=== PATIENT | female | born 1990 | race Two or more races ===

== ENCOUNTER 2025-01-14 01:42 | Emergency (ER) | payer MEDICAID, SELFPAY ==
[2025-01-14 01:44] VITALS: BP 142/89; PULSE 113; RESP 19; TEMP 37.5; O2SAT 92
[2025-01-14 01:45] VITALS: BMI 28.3
[2025-01-14 01:50] VITALS: PULSE 115; RESP 18; O2SAT 98
--- NOTE | 2025-01-14 02:10 | PD.EDSUICD ---
ED Psych RME/HPI General Chief Complaint: Suicidal Stated Complaint: 5150 Time Seen by Provider: 01/14/25 02:03 Arrival date/time: 01/14/25 01:42 RME / HPI RME / HPI Narrative: DR. 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 Patient admits to alcohol consumption tonight. Reports being told by people around her that she doesn't do anything and does not feel acknowledged for all she does for her household. Patient states she felt overwhelmed with life and decided to take her 's knife and cut her right forearm out of anger. Patient is on Methotrexate for management of Psoriasis. No other concerns or complains expressed at this time. Related Data Home Medications ?Medication ?Instructions ?Recorded ?Confirmed lisinopril 20 1 tab PO QAM High Blood Pressure 08/27/22 08/28/22 mg-hydrochlorothiazide 12.5 mg tablet Previous Rx's ?Medication ?Instructions ?Recorded pantoprazole 40 mg tablet,delayed 40 mg PO BID #180 tabs 08/28/22 release (Protonix) Allergies Allergy/AdvReac Type Severity Reaction Status Date / Time naproxen Allergy Intermediate Anaphylaxis Verified 08/28/22 09:59 Review of Systems Review of Systems Systems Reviewed: All systems reviewed, normal except as documented Past Medical History Past Medical History CARDIAC: Positive Cardiac Disorders and Hypertension GASTROINTESTINAL: Positive Gastrointestinal Disorders and Gastroesophageal Reflux Disease REPRODUCTIVE: Positive Endometriosis (hysterectomy) ENDOCRINE: Positive Systemic Lupus Erythematosus PSYCHO/SOCIAL: Positive Psychiatric Problems and Anxiety Surgical History SURGICAL: Positive Hysterectomy Social History ALCOHOL: Current ALCOHOL FREQUENCY: 3 or More Drinks per Day ALCOHOL LAST INTAKE: Just Prior to Arrival ED Exam Narrative Physical exam: Generally patient is alert obviously intoxicated but no obvious distress, head is normocephalic atraumatic, eyes pupils equal round reactive to light with erythematous conjunctiva bilaterally, heart regular rate and rhythm, lungs clear to auscultation equal bilaterally, abdomen soft bowel sounds present all send nontender, neurologic exam Maddie Coma Scale is 15 without focal motor deficits, extremities show very superficial linear abrasions to the anterior surface of the right forearm Course Quality Measures none Orders Category Date Time Status Consult Mold Release Worker NOW Care 01/14/25 03:17 Active Acetaminophen Stat Lab 01/14/25 02:30 Completed Alcohol, Blood Medical Stat Lab 01/14/25 02:30 Completed CBC Stat Lab 01/14/25 02:30 Completed CMP [Comprehensive Metabolic Panel] Stat Lab 01/14/25 02:30 Completed Drug Screen,Urine Stat Lab 01/14/25 02:16 Completed HCG,Qualitative Serum Stat Lab 01/14/25 02:30 Completed Salicylate Stat Lab 01/14/25 02:30 Completed Vital Signs Vital signs: Vital Signs Temperature 99.5 F 01/14/25 01:44 Pulse Rate 113 H 01/14/25 01:44 Respiratory Rate 19 01/14/25 01:44 Blood Pressure 142/89 H 01/14/25 01:44 Pulse Oximetry (%) 92 L 01/14/25 01:44 Oxygen Delivery Method Room Air 01/14/25 01:44 Psych MDM Narrative MDM Narrative:: Scribe Attestation: IMelvi, am scribing for and in the presence of Dr. Estrada. Provider Notation: Although this document has been carefully reviewed, there may still be some phonetic and other typographical errors. These errors are purely grammatical due to imperfections in the software program and should not be construed in any way to? compromise the substance of the patient's medical care during this visit. Differential diagnosis: Suicidal ideation, homicidal ideation, abrasions, drug intoxication, alcohol intoxication, overdose Interpreted all lab. Urinary tox screen was negative. Blood alcohol level was 278. Patient is on a 5150. I consulted social work instructor who will see the patient in the morning. Patient denies suicidal ideation at this time. Case will be signed out to Dr. Johnston awaiting social work instructor evaluation. Patient data External records reviewed:: [facility] previous records (No prior ED records available for review.) and EMS form Clinical information provided by:: patient and EMS Social determinants that could affect healthcare access:: alcohol use Patient has the following chronic illnesses:: Hypertension, Gastroesophageal Reflux Disease, Systemic Lupus Erythematosus, Anxiety How is presenting disease/condition affected by chronic disease/condition?: exacerbated by Evaluation data The following diagnostics were reviewed and interpreted by me:: lab results Lab and/or radiology exams considered but not ordered:: None Interpretation Summary: See MDM above. Medications / Prescriptions Medications or Prescriptions considered but not ordered:: None Medication administrations:: See above if any. Consultations Consultation(s) initiated? (list below): No Diagnosis Psych Differential Diagnosis: acute psychosis, suicidal ideation, bipolar disorder, depression, drug-induced psychotic disorder and acute anxiety Most likely diagnosis given after review of the tests above:: None Admission Indicated Admission indicated?: not indicated Explain why admission is indicated or not indicated:: Pending crisis consult in the morning. Admission Request Was there a request for admission?: No Disposition Plan Disposition Plan: other (specify) (Patient signed out to Dr. Johnston at 6 AM.) Discharge Plan Prescriptions/Referrals Prescriptions/Med Rec: No Action lisinopril-hydrochlorothiazide 20-12.5 mg tablet 1 tab PO QAM pantoprazole [Protonix] 40 mg Tablet,Delayed Release (Dr/Ec) 40 mg PO BID Qty: 180 0RF Rx Instructions: take 1 tablet by mouth twice daily Problem List Clinical Impression: Suicidal ideation, Alcohol intoxication, Multiple abrasions Patient/Caregiver Discharge Instructions Print Language: Slovenian
[2025-01-14 02:41] LABS: Basophils # (Auto) 0.1 Thou/mm3 (0.0-0.2); Basophils % (Auto) 1 % (0-2.5); Eosinophils # (Auto) 0.1 Thou/mm3 (0.0-0.5); Eosinophils % (Auto) 1 % (0-10); Hematocrit 37.3 % (36.0-46.0); Hemoglobin 12.9 g/dL (12.0-16.0); Immature Granulocytes Auto 0.04 Thou/mm3 (0.00-0.00); Lymphocytes # (Auto) 2.1 Thou/mm3 (1.0-4.8); Lymphocytes % (Auto) 35 % (10-50); Mean Corpuscular HGB Conc 34.6 g/dl (31.0-37.0); Mean Corpuscular Hemoglobin 31.5 pg (25.0-35.0); Mean Corpuscular Volume 91 fL (80-100); Monocytes # (Auto) 0.2 Thou/mm3 (0.0-0.8); Monocytes % (Auto) 3 % (0-12); Neutrophils # (Auto) 3.4 Thou/mm3 (1.8-7.7); Neutrophils % (Auto) 59 % (37-80); Nucleated Red Blood Cell # 0.00 Thou/mm3 (0.00-0.00); Nucleated Red Blood Cell % 0 /100 WBC (0); Platelet Count 276 Thou/mm3 (140-440); RDW Standard Deviation 42.8 fL (36.4-46.3); Red Blood Count 4.09 Miln/mm3 (4.00-5.20); White Blood Count 5.9 Thou/mm3 (3.6-11.0)
[2025-01-14 02:50] LABS: Amphetamine/Methamp Scrn,U Negative (Negative); Barbiturate Screen,Urine Negative (Negative); Benzodiazepines Screen,Urine Negative (Negative); Benzoylecgonine Screen, Ur Negative (Negative); Fentanyl Screen,Urine Negative (Negative); Opiate Screen,Urine Negative (Negative); THC Screen,Urine Negative (Negative)
[2025-01-14 02:54] LABS: HCG,Qualitative Serum Negative
[2025-01-14 03:01] LABS: Acetaminophen < 2.0 mcg/mL (10.0-20.0); Alanine Aminotransferase 66 U/L (10-49); Albumin, Serum 4.5 gm/dL (3.5-5.0); Albumin/Globulin Ratio 1.7 (1.2-2.2); Alcohol, Blood Medical 277.9 mg/dL (0-10.0); Alkaline Phosphatase 114 U/L (46-116); Anion Gap 16 (7-16); Aspartate Amino Transferase 105 U/L (0-34); BUN/Creatinine Ratio 7 Ratio (12-20); Bilirubin,Total 0.2 mg/dL (0.3-1.2); Blood Urea Nitrogen < 5 mg/dL (9-23); Calcium 10.1 mg/dL (8.3-10.6); Calcium (Corrected) 10.1 mg/dL (8.5-10.1); Carbon Dioxide 19.4 mMol/L (20.0-31.0); Chloride 106 mMol/L (98-107); Creatinine (Component) 0.7 mg/dL (0.6-1.3); Estimated Creatinine Clearance 111.1 mL/min (>60); Globulin 2.6 gm/dL (2.3-3.5); Glucose 120 mg/dL (74-106); Osmolality,Calculated 279 (275-295); Potassium 3.9 mMol/L (3.4-5.1); Salicylate < 3.0 mg/dL; Sodium 141 mMol/L (136-145); Total Protein 7.1 gm/dL (5.7-8.2); eGFR > 60 See Note
[2025-01-14 04:18] VITALS: BP 115/70; PULSE 128; RESP 19; TEMP 37.1; O2SAT 94
[2025-01-14 05:56] VITALS: BP 120/71; PULSE 102; RESP 19; TEMP 37; O2SAT 96
--- NOTE | 2025-01-14 07:02 | PD.EDADDENDU ---
Emergency Room Addendum Addendum Narrative: Care assumed from . Past medical, surgical, social and family history reviewed. Vitals and home medications reviewed. Results and treatment plan discussed. I will assume the care of the patient at this time and will follow the patient, pending psychiatric placement. Please refer to the emergency department record for history and examination from initial visit. Patient with suicidal ideation and a positive alcohol level of 278. We are currently awaiting social work program coordinator and the patient is medically clear for disposition. Patient remained stable while under my care.
--- NOTE | 2025-01-14 07:10 | PC.NURSE ---
pt asleep in bed in no apparent distress. respirations even and unlabored. 1 to 1 sitter at bedside
--- NOTE | 2025-01-14 07:33 | PC.NURSE ---
social security assessor at bedside to see pt
--- NOTE | 2025-01-14 08:00 | PC.NURSE ---
PT AWAKE IN BED IN NO APPARENT DISTRESS. PT DENIES SI OR HI AT THIS TIME. NO AUDITORY OR VISUAL HALLUCINATIONS. ASKED PT WHY SHE MADE THE STATEMENTS ABOUT WANTING TO HURT SELF YESTERDAY. PT STATES THAT SHE WAS JUST UPSET BECAUSE SHE IS ALWAYS IN PAIN FROM HER LUPUS AND WAS DRINKING. PT STATES SHE DOESN'T KNOW WHY SHE SAID IT AND HAS NEVER HAD THOUGHTS OF HURTING SELF BEFORE. 1 TO 1 SITTER AT BEDSIDE. PT REQUESTED TO USE PHONE. PHONE GIVEN TO PT AT THIS TIME
--- NOTE | 2025-01-14 09:34 | PC.CC ---
Patient is a 34 year-old female who presents to the hospital on a 5150 placed by [facility] due to self-harming on right forearm. AMFT Jeaneth made [id number] contact with patient to complete assessment. AMFT introduced self, role, and reason for assessment. AMFT disclosed limits of confidentiality as well. Patient appeared alert and oriented to self, place, and situation. Patient made appropriate eye contact with this gag writer. Patients mood appeared to be euthymic and remained engaged in assessment, patient had good insight and judgment. No signs of delusions, paranoid or V/h. Patient reports yesterday she was unable to sleep due to physical diagnosis of Lupus and Pt experiencing chronic pain. Pt reported she began drinking and wanted to self-harming in efforts to feel a different type of pain. Pt endorsed hx pf alcoholism. Pt reported self-harming was never with the intention to end life. Pt denied hx of self-harming behaviors. At the time of encounter patient is not expressing suicidal and homicidal ideations, visual and auditory hallucinations. Per patients Rick Durham [phone], Pt has not expressed SI or self-harming behaviors. also reported Pt has recently ran out of pain medication and has been having trouble sleeping. will like to Pt to return home and is whiling and able to safety plan. Patient?s toxicology report was negative for substances. Patient had a [place] screening completed at the time of arrival at the hospital, the outcome was High Risk. At time of encounter, :Pt reported she was drinking and emotional and denied any current thoughts of SI/HI and self-harming. Upon clinical consultation with RN HOSPICE, Brittnee Johnson patient does?not meet criteria for 5150 hold and hold will be rescinded with connection to Mental Health and Substance abuse servuces. . AMFT communicated outcome with all adult parties and will be coming to safety plan with Pt and provide transport home. AMFT provided update to Dr. Johnston, wool washing machine operator Lenise, and bedside TONY Lucia.
[2025-01-14 10:02] VITALS: BP 129/81; PULSE 88; RESP 19; TEMP 36.7; O2SAT 95
== END 2025-01-14 10:43 | disposition home or self-care (01) ==
PROVIDERS: Emergency Medicine; Emergency Provider Family Medicine; PCP Family Medicine
DX: S50.811A Abrasion of right forearm, initial encounter (principal); F10.929 Alcohol use, unspecified with intoxication, unspecified; X78.1XXA Intentional self-harm by knife, initial encounter; Y90.8 Blood alcohol level of 240 mg/100 ml or more; Z04.6 Encounter for general psychiatric examination, requested by authority
CPT/HCPCS: 36415; 80053; 80307; 80320; 80329; 84703; 85025; 96127; 99283; G0480